=== PATIENT | female | born 1995 | race Caucasian/White ===

== ENCOUNTER → 2020-07-21 | Outpatient (CLI) | payer OTHER ==
[2020-07-22 09:14] LABS: HCV AB <0.1 (0.0-0.9)
[2020-07-22 11:14] LABS: HBSAG SCREEN Negative (Negative); HEP B CORE AB, TOT Negative (Negative)
[2020-07-24 19:37] LABS: QUANTIFERON MITOGEN VALUE >10.00 IU/mL (.); QUANTIFERON NIL VALUE 0.21 IU/mL (.); QUANTIFERON TB1 AG VALUE 0.12 IU/mL (.); QUANTIFERON TB2 AG VALUE 0.14 IU/mL (.); QUANTIFERON-TB GOLD PLUS Negative (Negative)
== END ==
LOC: LAB 13:03
PROVIDERS: Internal Medicine
DX: E61.1 Iron deficiency (principal); L98.9 Disorder of the skin and subcutaneous tissue, unspecified; R76.8 Other specified abnormal immunological findings in serum; R53.83 Other fatigue; Z11.59 Encounter for screening for other viral diseases; Z79.899 Other long term (current) drug therapy
CPT/HCPCS: 36415; 82550; 83520; 84439; 84443; 86704; 86803; 87340

== ENCOUNTER → 2020-09-10 | Outpatient (CLI) | payer OTHER | LOC: RAD 16:17 | DX: L40.50 Arthropathic psoriasis, unspecified (principal); M46.1 Sacroiliitis, not elsewhere classified | CPT/HCPCS: 72202 ==

== ENCOUNTER → 2020-12-23 | Outpatient (CLI) | payer OTHER ==
[2020-12-23 14:51] LABS: HEMOGLOBIN 12.4 gm/dl (12.3-15.3); RED BLOOD COUNT 4.04 M/UL (4.00-5.10); WHITE BLOOD COUNT 6.4 K/UL (4.5-11.0)
[2020-12-23 16:41] LABS: BUN/CREATININE RATIO 13 (0-10)
== END ==
LOC: LAB 12:17
PROVIDERS: Internal Medicine
DX: Z79.899 Other long term (current) drug therapy (principal)
CPT/HCPCS: 36415; 80053; 85025